=== PATIENT | male | born 1995 | race Caucasian/White ===

== ENCOUNTER 2023-10-05 17:20 | Emergency (ER) | payer MEDICAID ==
[2023-10-05] MEDS: Ketorolac 30 MG/ML SDV IVPUSH ONE (17:40)
[2023-10-05] MEDS ORDERED: Ketorolac 60 MG/2 ML SDV IVPUSH SCH (17:45)
[2023-10-05] MEDS: Diphtheria,Pertussis(Acell),Tetanus Vaccine 0.5 ML Syringe IM ONE (18:15)
[2023-10-05] MEDS ORDERED: Acetaminophen/HYDROcodone 325-5 MG Tab ONE (18:25)
== END 2023-10-05 18:28 | disposition home or self-care (01) ==
LOC: LB.ED 17:20
DX: S52.532A Colles' fracture of left radius, initial encounter for closed fracture (principal); W01.0XXA Fall on same level from slipping, tripping and stumbling without subsequent striking against object, initial encounter
CPT/HCPCS: 29125; 73090-LT; 73110-LT; 90471; 90715; 96374; 99283-25; A9270-GY; J1885